=== PATIENT | female | born 1955 | race Caucasian/White ===

== ENCOUNTER → 2024-06-20 11:15 | Outpatient (REF) | payer BC, SELFPAY | LOC: HWRCS 11:15 | PROVIDERS: ATTENDING PHYSICIAN Internal Medicine Interventional Cardiology; FAMILY PHYSICIAN Family Medicine | DX: I25.10 Atherosclerotic heart disease of native coronary artery without angina pectoris (principal) | CPT/HCPCS: 93306 ==

== ENCOUNTER → 2025-01-31 09:47 | Outpatient (REF) | payer BC, SELFPAY | LOC: HWWDC 09:47 | PROVIDERS: ATTENDING PHYSICIAN Family Medicine | DX: Z12.31 Encounter for screening mammogram for malignant neoplasm of breast (principal); M85.89 Other specified disorders of bone density and structure, multiple sites; E04.2 Nontoxic multinodular goiter | CPT/HCPCS: 76536; 77063; 77067 ==